=== PATIENT | male | born 1995 | race Caucasian/White ===

== ENCOUNTER 2020-12-25 11:45 | Emergency (ER) | payer BC ==
[~2020-12-25] VITALS: Ht 190.5 cm; Wt 63.5 kg
--- NOTE | 2020-12-25 12:05 | NUR ---
Patient in room 3
[2020-12-25] MEDS: IV NORMAL SALINE 1000 ML BAG IV ONE (12:09)
[2020-12-25 12:26] LABS: HEMATOCRIT 44.5 % (36.7-47.1); MEAN CORPUSCULAR HEMOGLOBIN 32.4 uug (23.8-33.4); MEAN CORPUSCULAR VOLUME 93.2 fL (73.0-96.2); PLATELET COUNT (AUTO) 142 K/uL (152-348)
[2020-12-25 12:31] LABS: CREATININE 1.3 mg/dL (0.6-1.3); POTASSIUM 4.1 mmol/L (3.5-5.1)
[2020-12-25 12:36] LABS: BILIRUBIN,DIRECT 0.1 mg/dL (0.0-0.2); BILIRUBIN,TOTAL 0.8 mg/dL (0.2-1.0)
--- NOTE | 2020-12-25 13:56 | NUR ---
IV removed. Catheter intact and site benign. Pressure and 4x4 gauze applied to site. No bleeding noted.
--- NOTE | 2020-12-25 13:56 | NUR ---
DC and follow up instructions given and explained to patient who states he understands all instructions.
== END 2020-12-25 13:59 | disposition home or self-care (01) ==
LOC: ER 11:45
DX: R10.84 Generalized abdominal pain (principal); G89.29 Other chronic pain; D69.6 Thrombocytopenia, unspecified
CPT/HCPCS: 36415; 83690; 85025; A4663